=== PATIENT | female | born 1985 | race Caucasian/White ===

== ENCOUNTER 2022-03-14 13:05 | Outpatient (CLI) | payer MEDICAID, SELFPAY ==
[2022-03-14 13:29] VITALS: BP 113/81; PULSE 110; TEMP 36.8; O2SAT 98
[2022-03-14 13:33] VITALS: BMI 31.0
[2022-03-14] MEDS: Lactated Ringers 1,000 ML 999 ML IV (13:59)
[2022-03-14 14:06] LABS: Hematocrit 33.5 % (37-47); Hemoglobin 11.3 g/dL (12.0-15.0); Mean Corp Hgb Conc 33.7 g/dL (32-36); Mean Corpuscular Hgb 30.5 pg (27.0-32.0); Mean Corpuscular Volume 90.3 fL (81-99); Mean Platelet Vol. 11.5 fl (6.2-12.0); Platelet Count 169 K/mm3 (150-450); RBC Distribution Width CV 15.7 % (11.6-14.6); RBC Distribution Width SD 51.8 fl (35.1-43.9); Red Blood Count 3.71 M/mm3 (4.2-5.4); White Blood Count 11.2 K/mm3 (4.4-11.0)
[2022-03-14 14:15] LABS: Prothrombin Time (Protime)PT. 13.2 SECONDS (11.7-14.9)
[2022-03-14 14:16] LABS: Partial Thromboplast Time 25.2 Seconds (24.1-36.2)
[2022-03-14] MEDS: 0.9% Saline Lock 10 ML Syringe IV (14:53)
[2022-03-14 15:08] LABS: Fibrinogen 480 mg/dl (203-444)
--- NOTE | 2022-03-14 23:57 | OB.TRI.HP_ITS ---
HPI - General General Date of Admission: 03/14/22 Date of Service: 03/14/22 Chief Complaint: tachycardia HPI Narrative ANASTACIA ELIZONDO, is a 36 at 37 and 5 7 weeks who had some tachycardia in the office. She denied any vaginal bleeding or leaking of fluid. She had good movements. PFSH PFSH Home Medications ferrous sulfate 325 mg (65 mg iron) tablet (iron) 325 mg PO DAILY 03/14/22 [History Last Taken Unknown] prenat.vits,mattie,haw-lxre-fiuxj 1 tab PO DAILY 03/14/22 [History Last Taken Unknown] Allergy/AdvReac Type Severity Reaction Status Date / Time No Known Allergies Allergy Verified 03/14/22 13:34 NST FHR Rate Baby A Baseline: 140 Variability:: Moderate Accelerations:: 15 x 15 Decelerations:: None NST Reactive:: Yes FHR Category:: Category I Uterine Activity:: irreg ctxs Assessment & Plan (1) 37 weeks gestation of : PLAN: High risk multigravida with advanced maternal age. tachycardia in the office. tachycardia is now resolved and heart tones are category 1. Patient was discharged home with routine instructions and follow- up.
== END 2022-03-14 15:45 | disposition home or self-care (01) ==
LOC: WPOUT 13:18 → WP 13:18
PROVIDERS: Obstetrics & Gynecology; Referring Provider Advanced Practice Midwife; Visit Provider Advanced Practice Midwife
DX: O36.8330 Maternal care for abnormalities of the fetal heart rate or rhythm, third trimester, not applicable or unspecified (principal); O09.523 Supervision of elderly multigravida, third trimester; Z3A.37 37 weeks gestation of pregnancy
CPT/HCPCS: 96360; 36415; 59025; 59050; 85027; 85384; 85610; 85730; 99218; J7120; A4216; G0378

== ENCOUNTER 2022-03-30 07:00 | Inpatient (IN) | payer MEDICAID, SELFPAY ==
[2022-03-14 13:28] VITALS: TEMP 36.8
[2022-03-30] VITALS (56 sets, daily range): BP systolic 92–140; BP diastolic 49–82; PULSE 77–116; TEMP 36.1–37.2; O2SAT 95–100; BMI 31.8
--- NOTE | 2022-03-30 07:10 | PCM.HP.OB ---
HPI - General General Date of Admission: 03/30/22 Date of Service: 03/30/22 Chief Complaint: scheduled IOL HPI Narrative ANASTACIA ELIZONDO, is a 36 F who presents for a scheduled induction of labor per Izabella Capone CNM. She is a at 40w0d. She offers no complaints today. No regular ctx, vb, lof. Good FM. Induction was scheduled for mild poly and accelerate growth. The patient reports her biggest baby was 8 lb 12 ox and she feels this baby is about the same size. PFSH PFSH Home Medications ferrous sulfate 325 mg (65 mg iron) tablet (iron) 325 mg PO DAILY anemia 03/14/22 [History Last Taken 03/30/22] prenat.vits,mattie,xvo-ygou-ciqfy 1 tab PO DAILY 03/14/22 [History Last Taken 03/28/22] Allergy/AdvReac Type Severity Reaction Status Date / Time No Known Allergies Allergy Verified 03/14/22 13:34 Surgical History (Updated 03/30/22 @ 09:36 by Lisandra Gould) H/O dilation and curettage [employer] teeth removed Social History Smoking Status: Former smoker History Elective abortions Hx Para 2 Spontaneous abortions Hx # Term Pregnancies Ectopic pregnancies Hx # Pregnancies Multiple births # of living children NST FHR Rate Baby A FHR Category:: Category I Uterine Activity:: No regular ctx's Physical Exam Const alert and no apparent distress General Appearance: comfortable HEENT normocephalic Narrative: Cervical exam: Inner os 2 cm, outer os 4 cm, 50% effacement, -3 vertex Labs Labs Labs: Blood Type A NEGATIVE Antibody Screen POSITIVE H Hct 34.9 % (37-47) L Hgb 12.1 g/dL (12.0-15.0) Assessment & Plan (1) 40 weeks gestation of : PLAN: Patient presents for scheduled induction of labor. She had a growth ultrasound 3 days ago with EFW 4,423 g (9lb 12 oz) with mild polyhydramnios. She was counseled in the office regarding accelerated growth and management by Izabella Capone CNM and patient elected for a scheduled induction. Discussed with patient limitations of a 3rd trimester growth US. Discussed risk of a shoulder dystocia, failed induction, and a section. She understands risks with a shoulder dystocia. Discussed option for a primary section. After reviewing r/b/a of elective management, induction of labor, and primary section she desires to proceed with an induction of labor. Pelvis proven to 8 lb 12 oz baby. Pelvis adequate. She declines a section. GBS negative. Epidural PRN pain control. Pitocin per protocol. AROM performed by Dr. Nunez for clear fluid after several hours of Pitocin. Routine intrapartum care. (2) Accelerated growth of fetus: (3) Polyhydramnios: (4) AMA (advanced maternal age) multigravida 35+:
[2022-03-30] MEDS: Lactated Ringers 1,000 ML 50 ML IV (08:00)
[2022-03-30 08:27] LABS: Absolute Lymphocyte Count 1.73 X10^3/uL (0.83-4.51); Absolute Neutrophil Count 6.7 X10^3/uL (2.0-7.7); Basophil# 0.03 X10^3/uL; Basophil% 0.3 % (0-1); Eosinophil# 0.13 X10^3/uL; Eosinophils% 1.4 % (0-5); Hematocrit 34.9 % (37-47); Hemoglobin 12.1 g/dL (12.0-15.0); Lymphocyte # 1.73 X10^3/ul (0.83-4.51); Lymphocyte % 18.1 % (19-41); Mean Corp Hgb Conc 34.7 g/dL (32-36); Mean Corpuscular Hgb 31.4 pg (27.0-32.0); Mean Corpuscular Volume 90.6 fL (81-99); Mean Platelet Vol. 11.6 fl (6.2-12.0); Monocyte# 0.85 X10^3/uL; Monocyte% 8.9 % (0-10); NRBC Flagged by Analyzer 0 % (0-5); Neutrophil # 6.74 X10^3/uL (2.7-7.7); Neutrophil % 70.6 % (47-70); Platelet Count 141 K/mm3 (150-450); RBC Distribution Width CV 15.7 % (11.6-14.6); RBC Distribution Width SD 51.5 fl (35.1-43.9); Red Blood Count 3.85 M/mm3 (4.2-5.4); White Blood Count 9.6 K/mm3 (4.4-11.0)
[2022-03-30] MEDS: Oxytocin 15 Units/NS 250ml 15 UNITS/250 ML IV.SOLN 2 UNITS IV (08:49)
[2022-03-30] MEDS: Mag Hydrox/Al Hydrox/Simeth 30 ML UDC PO (10:22)
[2022-03-30] MEDS: fentaNYL 100 MCG/2 ML Ampul IV (18:45)
[2022-03-30] MEDS: Lactated Ringers 1,000 ML 200 ML IV (19:10)
[2022-03-30] MEDS: LACTATED RINGERS 500 ML 999 ML IV ×2 (20:00→20:47)
[2022-03-30] MEDS: fentaNYL-bupivacaine (epidural) 100 ML BAG EPIDURAL (20:44)
--- NOTE | 2022-03-30 21:35 | PCM.PN.BLA ---
Progress Note At bedside to check on pt. Comfortable with epidural. She offers no complaints at this time. Assessment & Plan Assessment/Plan (1) 40 weeks gestation of : PLAN: S/p epidural. Discussed slow labor progress given she is a multip. Not failure to progress at this time, but discussed given slower progress there is a concern for a shoulder dystocia. Discussed option for a primary section given slow progress, accelerate growth, and concern for shoulder dystocia. She declines a section. She wishes to continue with induction of labor. Reviewed criteria for FTP in labor and at that time would strongly recommend a primary section. Patient was counseled extensively on shoulder dystocia, accelerated growth on 3rd trimester growth US, and section and all questions answered. (2) Accelerated growth of fetus: (3) Polyhydramnios: (4) AMA (advanced maternal age) multigravida 35+:
--- NOTE | 2022-03-30 23:38 | PCM.OPRPT ---
Problems Associated Problem List Diagnoses (1) AMA (advanced maternal age) multigravida 35+: (2) Polyhydramnios: (3) Accelerated growth of fetus: (4) 40 weeks gestation of : (5) Vaginal delivery: (6) Second degree perineal laceration: Report of Operation Date of Procedure: 03/30/22 Pre-Operative Diagnosis: 40 week gestation, scheduled IOL, accelerated growth, polyhydramnios, AMA, single IUP Post-Operative Diagnosis: As above Surgery/Procedure Performed:: Second degree perineal laceration Description of Surgical Findings:: VMI in JUDAH position. Apgars 9, 9. Loose nuchal cord x 1 and true knot in the cord. Normal appearing placenta with 3 VC Surgeon: Monica Kim Type of Anesthesia: Epidural Special Medications: None Specimen's removed: Placenta Drains: Ambrosio Estimated Blood Loss (mL): 200 Fluids Replaced: N/A Description of Procedure: Patient complete and pushing for 6 contractions. Head of delivered in JUDAH position. The anterior shoulder, posterior shoulder, and body of the infant were delivered without any traction, force, or delay. A vigorous VMI was delivered atraumatically and placed on maternal abdomen. A loose nuchal cord x 1 was noted as well as a true knot in the cord. The cord was clamped and cut after a 60 sec delay by FOB. Cord blood obtained. The placenta was delivered with fundal massage. The uterus was boggy. The uterus was explored and cleared of clot. The uterus firmed up with uterine massage and IV Pitocin. Fundus firm and bleeding hemostatic. 3-0 Vicryl was used to repair a 2nd degree perineal laceration in usual fashion. Sponge and sharp counts were correct. Vaginal sweep was performed. Grafts/Implants Used: None Complications None
[2022-03-31] VITALS (13 sets, daily range): BP systolic 86–126; BP diastolic 46–72; PULSE 71–110; RESP 16–18; TEMP 36.1–36.9; O2SAT 97–99
[2022-03-31] MEDS: 0.9% Saline Lock 10 ML Syringe IV (00:20)
[2022-03-31] MEDS: Benzocaine/Lanolin/Aloe Vera 1 SPRAY EACH TOPICAL (03:36)
[2022-03-31] MEDS: Ibuprofen 600 MG Tablet PO ×3 (06:57→20:50)
[2022-03-31] MEDS: Acetaminophen 500 MG Tablet 1000 MG PO ×2 (09:41→20:11)
[2022-03-31] MEDS: Senna/Docusate Sodium 1 Tablet PO (09:41)
--- NOTE | 2022-03-31 12:41 | PCM.PN.OB ---
Subjective Subjective Denies complaints Objective Data Objective Data Vital Signs: Vital Signs Temp Pulse Resp BP Pulse Ox O2 Del Method 98.4 F 87 18 86/46 L 99 Room Air 03/31/22 12:30 03/31/22 12:30 03/31/22 12:30 03/31/22 12:30 03/31/22 09:27 03/31/22 12:30 Oxygen Delivery Method Room Air Weight: 209 lb 6.4 oz Body Mass Index (BMI) 31.8 Intake & Output: Intake and Output for Last 24 Hours 03/29/22 03/30/22 03/31/22 23:59 23:59 23:59 Intake Total 2730.00 / 2730.00 Output Total 1050 / 1050 Balance 1680.00 / 1680.00 Lab / Micro Data Result Diagrams: 03/30/22 08:05 Labs: Laboratory Results - last 24 hr 03/30/22 08:05: Blood Type A NEGATIVE, Antibody Screen POSITIVE H, Antibody Identification ANTI-D 03/31/22 01:00: Screen NEGATIVE, Baby's Blood Type A POSITIVE, Baby's RONALD NEGATIVE Physical Exam Const alert, oriented x3 and no apparent distress HEENT normocephalic GI soft to palpation, non-tender and non-distended GI Narrative: fundus firm, mid & below umbilicus Extremity normal to inspection and no calf tenderness Assessment & Plan (1) Vaginal delivery: COMMENT: PPD#1 PLAN: Plan Routine PP care
[2022-04-01 02:00] VITALS: BP 105/47; PULSE 71; RESP 16; TEMP 36.1
[2022-04-01] MEDS: Ibuprofen 600 MG Tablet PO (02:50)
[2022-04-01] MEDS: Acetaminophen 500 MG Tablet 1000 MG PO (02:50)
[2022-04-01 08:39] VITALS: BP 126/70; PULSE 71; RESP 16; TEMP 36.6; O2SAT 100
--- NOTE | 2022-04-01 09:23 | DCINST_ITS ---
Discharge Instructions Diet Discharge Diet: No restrictions Activity Discharge Activity: May Shower May resume sexual activity in: 6 weeks Weight Bearing Status: Weight bearing as tolerated Dressing / Incision Call your doctor if you observe: Fever of 101 or Higher, Coldness, Increased Pain, Change in Color, Inability to urinate, Inability to have a bowel movement, Using more than 1 pad per hour, Shortness of breath, Dizziness, Fainting spells, Chest pain, Increased palpitations (irregular heartbeat), Calf discomfort and Uncontrolled pain Follow Up Care Please Follow Up With: Monica Kim DO When: Follow up in 2 and 6 weeks for visits. Test Results: Test results from this visit will be discussed in further detail at your follow- up appointment, if applicable. Discharge Plan Admission Admit Date/Time: 03/30/22 07:00 Primary Reason for Your Visit: Vaginal delivery Attending Provider: Monica Kim Primary Care Provider: Care PhysicianChanel Primary Discharge Orders/Prescriptions Prescriptions: New acetaminophen 500 mg Tablet 1,000 mg PO Q6H PRN PRN (Reason: Pain 1-10 Or Fever) Qty: 0 0RF ibuprofen 600 mg Tablet 600 mg PO Q6H PRN PRN (Reason: Pain Score 1-3) Qty: 0 0RF Continued prenat.vits,mattie,rql-yuzm-tvmeo Tablet 1 tab PO DAILY Discontinued ferrous sulfate [iron] 325 mg (65 mg iron) Tablet 325 mg PO DAILY Referrals / Follow Up: Care Physician,No Primary [Primary Care Provider] - Disposition Disposition (needs filled in before D/C Order can be placed): Home, Self Care
--- NOTE | 2022-04-01 09:25 | PCM.PN.OB ---
Subjective Subjective Denies complaints Objective Data Objective Data Vital Signs: Vital Signs Temp Pulse Resp BP Pulse Ox O2 Del Method 97.9 F 71 16 126/70 H 100 Room Air 04/01/22 08:39 04/01/22 08:39 04/01/22 08:39 04/01/22 08:39 04/01/22 08:39 04/01/22 08:39 Oxygen Delivery Method Room Air Weight: 209 lb 6.4 oz Body Mass Index (BMI) 31.8 Intake & Output: Intake and Output for Last 24 Hours 03/30/22 03/31/22 04/01/22 23:59 23:59 23:59 Intake Total 2730.00 / 2730.00 Output Total 1050 / 1050 Balance 1680.00 / 1680.00 Lab / Micro Data Result Diagrams: 03/30/22 08:05 Physical Exam Const alert, oriented x3 and no apparent distress HEENT normocephalic GI soft to palpation, non-tender and non-distended GI Narrative: fundus firm, mid & below umbilicus Extremity normal to inspection and no calf tenderness Assessment & Plan (1) Vaginal delivery: COMMENT: PPD#2 PLAN: Plan D/c to home
== END 2022-04-01 10:00 | disposition home or self-care (01) | DRG 560 ==
PROVIDERS: Admitting Provider Obstetrics & Gynecology; Referring Provider Obstetrics & Gynecology; Visit Provider Obstetrics & Gynecology
DX: O48.0 Post-term pregnancy (principal); Z37.0 Single live birth; O40.3XX0 Polyhydramnios, third trimester, not applicable or unspecified; O69.81X0 Labor and delivery complicated by cord around neck, without compression, not applicable or unspecified; Z3A.40 40 weeks gestation of pregnancy; Z87.891 Personal history of nicotine dependence; O70.1 Second degree perineal laceration during delivery
CPT/HCPCS: 59025; 59050; 85025; 85461; 86850; 86870; 86900; 86901; 99218; J7120; A4216; G0378; J2790